=== PATIENT | female | born 1955 | race Caucasian/White ===

== ENCOUNTER 2020-11-27 00:55 | Emergency (ER) | payer OTHER ==
[2020-11-27] MEDS ORDERED: CEPHALEXIN500 MG PO (04:15)
[2020-11-27] MEDS ORDERED: CYCLOBENZAPRINE10 MG PO (04:15)
== END 2020-11-27 04:17 | disposition home or self-care (01) ==
LOC: ER1 00:55
DX: S39.012A Strain of muscle, fascia and tendon of lower back, initial encounter (principal); R82.81 Pyuria; M25.551 Pain in right hip; F17.200 Nicotine dependence, unspecified, uncomplicated; Z86.73 Personal history of transient ischemic attack (TIA), and cerebral infarction without residual deficits; Z88.2 Allergy status to sulfonamides; Z88.8 Allergy status to other drugs, medicaments and biological substances; Z95.5 Presence of coronary angioplasty implant and graft; X58.XXXA Exposure to other specified factors, initial encounter
CPT/HCPCS: 81001; 99283

== ENCOUNTER 2020-12-03 08:30 | Emergency (ER) | payer OTHER ==
[~2020-12-03 08:30] MED LIST: CEPHALEXIN500 MG PO; CYCLOBENZAPRINE10 MG PO
[2020-12-03] MEDS ORDERED: PREDNISONE 50 M50 MG PO (09:54)
[2020-12-03] MEDS ORDERED: CYCLOBENZAPRINE10 MG PO (09:54)
== END 2020-12-03 11:15 | disposition home or self-care (01) ==
LOC: ER1 08:30
DX: M53.3 Sacrococcygeal disorders, not elsewhere classified (principal); M54.5 Low back pain; M25.551 Pain in right hip; I10 Essential (primary) hypertension; F17.200 Nicotine dependence, unspecified, uncomplicated; Z95.1 Presence of aortocoronary bypass graft; Z95.5 Presence of coronary angioplasty implant and graft; Z88.2 Allergy status to sulfonamides; Z88.8 Allergy status to other drugs, medicaments and biological substances
CPT/HCPCS: 96372; 99283; J1100; J1885

== ENCOUNTER 2021-01-31 17:03 | Emergency (ER) | payer OTHER ==
[~2021-01-31 17:03] MED LIST changes: +PREDNISONE 50 M50 MG PO
[2021-02-01] MEDS ORDERED: ASPIRIN EC81 MG PO (13:56)
[2021-02-01] MEDS ORDERED: OMEPRAZOLE20 MG PO (13:57)
[2021-02-01] MEDS ORDERED: COREG 25MG TAB25 MG PO (13:58)
[2021-02-01] MEDS ORDERED: EFFER-K 10 MEQ10 MEQ PO (13:59)
[2021-02-01] MEDS ORDERED: LEVOTHYROXINE25 MC1 PO ×2 (14:00→14:05)
[2021-02-01] MEDS ORDERED: CELEXA40 MG PO (14:00)
[2021-02-01] MEDS ORDERED: LYRICA150 MG PO (14:01)
[2021-02-01] MEDS ORDERED: ESTRACE0.5 MG PO (14:01)
[2021-02-01] MEDS ORDERED: LISINOPRIL20 MG PO (14:04)
[2021-02-01] MEDS ORDERED: QDOLO5 MG/1 ML PO (14:06)
[2021-02-01] MEDS ORDERED: ATORVASTATIN CA80 MG PO (14:06)
== END 2021-01-31 22:55 | disposition left against medical advice (07) ==
LOC: ER1 17:03
DX: M25.551 Pain in right hip (principal); M25.552 Pain in left hip; I25.10 Atherosclerotic heart disease of native coronary artery without angina pectoris; I25.2 Old myocardial infarction; F17.210 Nicotine dependence, cigarettes, uncomplicated; Z90.49 Acquired absence of other specified parts of digestive tract; Z90.89 Acquired absence of other organs; Z88.2 Allergy status to sulfonamides; Z88.8 Allergy status to other drugs, medicaments and biological substances; Z86.73 Personal history of transient ischemic attack (TIA), and cerebral infarction without residual deficits; Z95.1 Presence of aortocoronary bypass graft
CPT/HCPCS: 73522; 81001; 99283

== ENCOUNTER 2021-02-01 10:28 | Inpatient (IN) | payer OTHER ==
[~2021-02-01] VITALS: Ht 162.6 cm; Wt 80.3 kg
[2021-02-01] MEDS ORDERED: ASPIRIN EC81 MG PO (13:56)
[2021-02-01] MEDS ORDERED: OMEPRAZOLE20 MG PO (13:57)
[2021-02-01] MEDS ORDERED: COREG 25MG TAB25 MG PO (13:58)
[2021-02-01] MEDS ORDERED: EFFER-K 10 MEQ10 MEQ PO (13:59)
[2021-02-01] MEDS ORDERED: CELEXA40 MG PO (14:00)
[2021-02-01] MEDS ORDERED: LEVOTHYROXINE25 MC1 PO ×2 (14:00→14:05)
[2021-02-01] MEDS ORDERED: LYRICA150 MG PO (14:01)
[2021-02-01] MEDS ORDERED: ESTRACE0.5 MG PO (14:01)
[2021-02-01] MEDS ORDERED: LISINOPRIL20 MG PO (14:04)
[2021-02-01] MEDS ORDERED: QDOLO5 MG/1 ML PO (14:06)
[2021-02-01] MEDS ORDERED: ATORVASTATIN CA80 MG PO (14:06)
[2021-02-02 05:38] LABS: HEMOGLOBIN 10.5 gm/dl (12.3-15.3); RED BLOOD COUNT 3.95 M/UL (4.00-5.10); WHITE BLOOD COUNT 7.9 K/UL (4.5-11.0)
[2021-02-03 05:30] LABS: HEMOGLOBIN 10.2 gm/dl (12.3-15.3); RED BLOOD COUNT 3.83 M/UL (4.00-5.10); WHITE BLOOD COUNT 6.3 K/UL (4.5-11.0)
[2021-02-04] MEDS ORDERED: HYDRALAZINE HCL25 MG PO (10:38)
[2021-02-04] MEDS ORDERED: CATAPRES 0.1MG0.1 MG PO (10:38)
[2021-02-04] MEDS ORDERED: IPRAT-ALBUT 0.5-3 ML NEB (10:38)
[2021-02-04] MEDS ORDERED: AMLODIPINE BESYL5 MG PO (10:38)
== END 2021-02-04 11:58 | disposition home or self-care (01) | DRG 683 ==
LOC: CCU 13:23
PROVIDERS: Internal Medicine Nephrology; ADMIT Internal Medicine Infectious Disease
DX: N17.9 Acute kidney failure, unspecified (principal); E87.2 Acidosis; M62.82 Rhabdomyolysis; G72.0 Drug-induced myopathy; E87.5 Hyperkalemia; E03.9 Hypothyroidism, unspecified; I73.9 Peripheral vascular disease, unspecified; I10 Essential (primary) hypertension; M54.9 Dorsalgia, unspecified; Z20.822 Contact with and (suspected) exposure to COVID-19; I25.10 Atherosclerotic heart disease of native coronary artery without angina pectoris; K21.9 Gastro-esophageal reflux disease without esophagitis; T50.905A Adverse effect of unspecified drugs, medicaments and biological substances, initial encounter; J45.909 Unspecified asthma, uncomplicated; E16.2 Hypoglycemia, unspecified; M79.606 Pain in leg, unspecified; Z95.828 Presence of other vascular implants and grafts; Z95.1 Presence of aortocoronary bypass graft; Z98.890 Other specified postprocedural states; Z82.49 Family history of ischemic heart disease and other diseases of the circulatory system; Z87.891 Personal history of nicotine dependence; Z90.710 Acquired absence of both cervix and uterus; Z88.2 Allergy status to sulfonamides; Z88.8 Allergy status to other drugs, medicaments and biological substances
CPT/HCPCS: 36415; 71045; 73522; 80048; 80053; 81001; 82550; 82803; 83735; 84443; 85025; 94640; 94664; 94760; J0360; J1644; J7030

== ENCOUNTER 2021-04-09 14:13 | Inpatient (IN) | payer OTHER ==
[~2021-04-09] VITALS: Ht 162.6 cm; Wt 78.9 kg
[~2021-04-09 14:13] MED LIST changes: +AMLODIPINE BESYL5 MG PO; +ASPIRIN EC81 MG PO; +ATORVASTATIN CA80 MG PO; +CATAPRES 0.1MG0.1 MG PO; +CELEXA40 MG PO; +COREG 25MG TAB25 MG PO; +EFFER-K 10 MEQ10 MEQ PO; +ESTRACE0.5 MG PO; +HYDRALAZINE HCL25 MG PO; +IPRAT-ALBUT 0.5-3 ML NEB; +LEVOTHYROXINE25 MC1 PO; +LISINOPRIL20 MG PO; +LYRICA150 MG PO; +OMEPRAZOLE20 MG PO; +QDOLO5 MG/1 ML PO
[2021-04-09 17:13] LABS: HEMOGLOBIN 11.5 gm/dl (12.3-15.3); RED BLOOD COUNT 4.01 M/UL (4.00-5.10); WHITE BLOOD COUNT 7.9 K/UL (4.5-11.0)
[2021-04-10 03:51] LABS: HEMOGLOBIN 10.3 gm/dl (12.3-15.3); WHITE BLOOD COUNT 6.2 K/UL (4.5-11.0)
[2021-04-10 03:52] LABS: RED BLOOD COUNT 3.6 M/UL (4.00-5.10)
[2021-04-10] MEDS ORDERED: PRINIVIL20 MG PO (10:13)
[2021-04-10] MEDS ORDERED: LIPITOR80 MG PO (10:20)
[2021-04-10] MEDS ORDERED: KENALOG 0.5% CR15 GM TOP (10:22)
== END 2021-04-11 12:09 | disposition home or self-care (01) | DRG 683 ==
LOC: ER1 14:13 → OB 20:46 → CDU 20:46 → OB 04-10 12:25
PROVIDERS: Internal Medicine; ADMIT Internal Medicine
DX: N17.9 Acute kidney failure, unspecified (principal); E87.2 Acidosis; N39.0 Urinary tract infection, site not specified; N18.30 Chronic kidney disease, stage 3 unspecified; I12.9 Hypertensive chronic kidney disease with stage 1 through stage 4 chronic kidney disease, or unspecified chronic kidney disease; K21.9 Gastro-esophageal reflux disease without esophagitis; Z20.822 Contact with and (suspected) exposure to COVID-19; K59.09 Other constipation; F17.210 Nicotine dependence, cigarettes, uncomplicated; E03.9 Hypothyroidism, unspecified; K59.00 Constipation, unspecified; I73.9 Peripheral vascular disease, unspecified; G89.29 Other chronic pain; E87.6 Hypokalemia; I25.10 Atherosclerotic heart disease of native coronary artery without angina pectoris; Z95.1 Presence of aortocoronary bypass graft; Z79.82 Long term (current) use of aspirin; Z95.5 Presence of coronary angioplasty implant and graft; Z90.710 Acquired absence of both cervix and uterus; Z90.49 Acquired absence of other specified parts of digestive tract; Z88.6 Allergy status to analgesic agent; Z88.2 Allergy status to sulfonamides; Z88.8 Allergy status to other drugs, medicaments and biological substances; Z82.49 Family history of ischemic heart disease and other diseases of the circulatory system
CPT/HCPCS: 36415; 80048; 80053; 81001; 83690; 83735; 85025; 87086; 96374; 99285; J0696; J7030; U0002

== ENCOUNTER 2021-05-18 15:55 | Emergency (ER) | payer OTHER ==
[~2021-05-18 15:55] MED LIST changes: +KENALOG 0.5% CR15 GM TOP; +LIPITOR80 MG PO; +PRINIVIL20 MG PO
[2021-05-18 17:21] LABS: HEMOGLOBIN 11.8 gm/dl (12.3-15.3); RED BLOOD COUNT 4.1 M/UL (4.00-5.10); WHITE BLOOD COUNT 8.4 K/UL (4.5-11.0)
[2021-05-18] MEDS ORDERED: BENTYL 20MG TAB20 MG PO (21:18)
== END 2021-05-18 21:38 | disposition home or self-care (01) ==
LOC: ER1 15:55
PROVIDERS: Physician Assistant Medical
DX: I12.9 Hypertensive chronic kidney disease with stage 1 through stage 4 chronic kidney disease, or unspecified chronic kidney disease (principal); N18.9 Chronic kidney disease, unspecified; F17.210 Nicotine dependence, cigarettes, uncomplicated; Z88.8 Allergy status to other drugs, medicaments and biological substances; Z95.1 Presence of aortocoronary bypass graft; Z90.710 Acquired absence of both cervix and uterus; Z90.49 Acquired absence of other specified parts of digestive tract; Z79.82 Long term (current) use of aspirin
CPT/HCPCS: 71045; 80053; 81001; 84484; 85025; 99284

== ENCOUNTER 2021-08-25 01:35 | Inpatient (IN) | payer OTHER ==
[~2021-08-25] VITALS: Ht 162.6 cm; Wt 92.1 kg
[~2021-08-25 01:35] MED LIST changes: +BENTYL 20MG TAB20 MG PO
[2021-08-25 02:33] LABS: HEMOGLOBIN 9.5 gm/dl (12.3-15.3); RED BLOOD COUNT 3.26 M/UL (4.00-5.10); WHITE BLOOD COUNT 9.6 K/UL (4.5-11.0)
[2021-08-25 03:33] LABS: BUN/CREATININE RATIO 14 (0-10)
[2021-08-25] MEDS ORDERED: BENTYL 20MG TAB20 MG PO (09:19)
[2021-08-26 02:38] LABS: RED BLOOD COUNT 3.41 M/UL (4.00-5.10); WHITE BLOOD COUNT 10.7 K/UL (4.5-11.0)
[2021-08-27 02:53] LABS: HEMOGLOBIN 9.6 gm/dl (12.3-15.3); RED BLOOD COUNT 3.26 M/UL (4.00-5.10)
[2021-08-28 03:20] LABS: HEMOGLOBIN 8.4 gm/dl (12.3-15.3); WHITE BLOOD COUNT 7.5 K/UL (4.5-11.0)
[2021-08-28 03:24] LABS: RED BLOOD COUNT 2.84 M/UL (4.00-5.10)
[2021-08-29 04:00] LABS: HEMOGLOBIN 8.4 gm/dl (12.3-15.3); RED BLOOD COUNT 2.88 M/UL (4.00-5.10); WHITE BLOOD COUNT 6.6 K/UL (4.5-11.0)
[2021-08-29] MEDS ORDERED: HYDRALAZINE HCL50 MG PO (09:56)
[2021-08-29] MEDS ORDERED: AMLODIPINE BESYL5 MG PO (09:56)
[2021-08-29] MEDS ORDERED: ATORVASTATIN CA20 MG PO (09:56)
[2021-08-29 11:13] LABS: ANTISTREPTOLYSIN O AB 250.1 IU/mL (0.0-200.0); COMPLEMENT C3, SERUM 130 mg/dL (82-167); COMPLEMENT C4, SERUM 27 mg/dL (12-38)
[2021-08-29 12:13] LABS: HBSAG SCREEN Negative (Negative); HEP B CORE AB, TOT Negative (Negative); HEP C VIRUS AB <0.1 (0.0-0.9)
--- NOTE | 2021-08-29 13:50 | NUR ---
PATIENT'S OXYGEN SATURATION NOTED TO HAVE DROPPED TO 84% ON ROOM AIR. TELEMETRY NOTIFIED RN PATIENT IS ON CONTINUOUS TELEMETRY AND PULSE OX. PATIENT STATED SHE WAS FEELING SHORT OF BREATH BUT DENIED CHEST PAIN. RN PLACED PATIENT ON 3 LITERS OXYGEN VIA NASAL CANNULA. MD ORDERED HOME OXYGEN AT 3 LITERS AND TO CONTINUE WITH DISCHARGE.
[2021-08-29 15:14] LABS: A/G RATIO 1.2 (0.7-1.7); ALBUMIN 3.4 g/dL (2.9-4.4); ALPHA-1-GLOBULIN 0.2 g/dL (0.0-0.4); ALPHA-2-GLOBULIN 0.7 g/dL (0.4-1.0); ANTI-DSDNA ANTIBODIES <1 IU/mL (0-9); GLOBULIN, TOTAL 2.9 g/dL (2.2-3.9); IMMUNOGLOBULIN A, QN, SERUM 310 mg/dL (87-352); IMMUNOGLOBULIN G, QN, SERUM 1007 mg/dL (586-1602); IMMUNOGLOBULIN M, QN, SERUM 41 mg/dL (26-217); M-SPIKE Not Observed g/dL (Not Observed); PROTEIN, TOTAL, SERUM 6.3 g/dL (6.0-8.5)
[2021-08-29 17:14] LABS: ATYPICAL PANCA <1:20 titer (Neg:<1:20); CYTOPLASMIC (C-ANCA) <1:20 titer (Neg:<1:20); PERINUCLEAR (P-ANCA) <1:20 titer (Neg:<1:20)
== END 2021-08-29 15:20 | disposition home or self-care (01) | DRG 291 ==
LOC: ER1 01:35 → CDU 04:26 → PROG CARE 04:26 → MED SURG 4 08-28 10:13
PROVIDERS: Family Medicine; Internal Medicine; Internal Medicine Nephrology; ADMIT Internal Medicine
PROC: B24BZZ4 Ultrasonography of Heart with Aorta, Transesophageal (ICD-10-PCS; principal; 2021-08-25)
DX: I13.0 Hypertensive heart and chronic kidney disease with heart failure and stage 1 through stage 4 chronic kidney disease, or unspecified chronic kidney disease (principal); J96.01 Acute respiratory failure with hypoxia; Z20.822 Contact with and (suspected) exposure to COVID-19; I50.31 Acute diastolic (congestive) heart failure; N17.9 Acute kidney failure, unspecified; I16.0 Hypertensive urgency; K21.9 Gastro-esophageal reflux disease without esophagitis; E11.22 Type 2 diabetes mellitus with diabetic chronic kidney disease; E66.9 Obesity, unspecified; I73.9 Peripheral vascular disease, unspecified; E03.9 Hypothyroidism, unspecified; I08.3 Combined rheumatic disorders of mitral, aortic and tricuspid valves; N18.30 Chronic kidney disease, stage 3 unspecified; J44.9 Chronic obstructive pulmonary disease, unspecified; F17.210 Nicotine dependence, cigarettes, uncomplicated; I25.10 Atherosclerotic heart disease of native coronary artery without angina pectoris; Z95.1 Presence of aortocoronary bypass graft; Z90.49 Acquired absence of other specified parts of digestive tract; Z82.49 Family history of ischemic heart disease and other diseases of the circulatory system; Z88.1 Allergy status to other antibiotic agents; Z88.2 Allergy status to sulfonamides; Z88.8 Allergy status to other drugs, medicaments and biological substances; Z79.82 Long term (current) use of aspirin; Z68.30 Body mass index [BMI] 30.0-30.9, adult; Z79.4 Long term (current) use of insulin; Z95.5 Presence of coronary angioplasty implant and graft
CPT/HCPCS: ECHO; 36415; 36600; 71045; 80048; 80053; 82550; 82553; 82570; 82784; 82803; 83520; 83735; 83874; 83880; 83883; 84100; 84155; 84156; 84165; 84484; 85025; 85027; 86038; 86060; 86160; 86162; 86225; 86256; 86334; 86704; 86706; 86708; 86803; 87340; 93005; 93306; 94640; 94664; 94760; 96374; 96375; 99285; J0360; J1650; J1940; J2930; J7030; P9047; U0002

== ENCOUNTER 2021-09-12 15:24 | Observation (INO) | payer OTHER ==
[~2021-09-12] VITALS: Ht 162.6 cm; Wt 80.5 kg
[~2021-09-12 15:24] MED LIST changes: +ATORVASTATIN CA20 MG PO; +HYDRALAZINE HCL50 MG PO
[2021-09-12 17:02] LABS: RED BLOOD COUNT 3.04 M/UL (4.00-5.10); WHITE BLOOD COUNT 11.2 K/UL (4.5-11.0)
[2021-09-13] MEDS ORDERED: CETIRIZINE HCL10 MG PO (02:03)
[2021-09-13] MEDS ORDERED: CLARITIN 10MG T10 MG PO (02:04)
[2021-09-13] MEDS ORDERED: DICYCLOMINE HCL20 MG PO (02:04)
[2021-09-13] MEDS ORDERED: ESTRACE 1 MG TAB1 MG PO (02:05)
[2021-09-13] MEDS ORDERED: FAMOTIDINE40 MG PO (02:05)
[2021-09-13] MEDS ORDERED: HYDROCODON-ACE1 EAC2 PO (02:08)
[2021-09-15] MEDS ORDERED: HYDRALAZINE HCL50 MG PO (09:48)
[2021-09-15] MEDS ORDERED: ALDACTONE 25MG25 MG PO (09:48)
[2021-09-15] MEDS ORDERED: LASIX20 MG PO (09:48)
== END 2021-09-15 13:00 | disposition home health service (06) ==
LOC: ER1 15:24 → CDU 20:03 → PROG CARE 20:03
PROVIDERS: Physician Assistant; ADMIT Internal Medicine
DX: I13.0 Hypertensive heart and chronic kidney disease with heart failure and stage 1 through stage 4 chronic kidney disease, or unspecified chronic kidney disease (principal); I50.33 Acute on chronic diastolic (congestive) heart failure; N18.30 Chronic kidney disease, stage 3 unspecified; I16.0 Hypertensive urgency; I35.2 Nonrheumatic aortic (valve) stenosis with insufficiency; J44.9 Chronic obstructive pulmonary disease, unspecified; J96.21 Acute and chronic respiratory failure with hypoxia; I25.10 Atherosclerotic heart disease of native coronary artery without angina pectoris; E78.5 Hyperlipidemia, unspecified; I73.9 Peripheral vascular disease, unspecified; E03.9 Hypothyroidism, unspecified; K21.9 Gastro-esophageal reflux disease without esophagitis; D63.1 Anemia in chronic kidney disease; E66.9 Obesity, unspecified; Z99.81 Dependence on supplemental oxygen; Z68.31 Body mass index [BMI] 31.0-31.9, adult; Z79.82 Long term (current) use of aspirin; Z79.899 Other long term (current) drug therapy; Z88.2 Allergy status to sulfonamides; Z88.8 Allergy status to other drugs, medicaments and biological substances; Z95.1 Presence of aortocoronary bypass graft; Z90.49 Acquired absence of other specified parts of digestive tract; Z87.891 Personal history of nicotine dependence; Z20.822 Contact with and (suspected) exposure to COVID-19
CPT/HCPCS: 36415; 36600; 71045; 80048; 80053; 82550; 82553; 82803; 83735; 83874; 83880; 84100; 84132; 84439; 84443; 84484; 84550; 85025; 93005; 94640; 94664; 94760; 96372; 96374; 96375; 96376; 99285; G0378; J0360; J1650; J1940; U0002

== ENCOUNTER 2021-09-19 21:49 | Emergency (ER) | payer OTHER ==
[~2021-09-19 21:49] MED LIST changes: +ALDACTONE 25MG25 MG PO; +CETIRIZINE HCL10 MG PO; +CLARITIN 10MG T10 MG PO; +DICYCLOMINE HCL20 MG PO; +ESTRACE 1 MG TAB1 MG PO; +FAMOTIDINE40 MG PO; +HYDROCODON-ACE1 EAC2 PO; +LASIX20 MG PO
[2021-09-19 22:23] LABS: HEMOGLOBIN 9.1 gm/dl (12.3-15.3); RED BLOOD COUNT 3.1 M/UL (4.00-5.10); WHITE BLOOD COUNT 11.1 K/UL (4.5-11.0)
== END 2021-09-20 00:30 | disposition home or self-care (01) ==
LOC: ER1 21:49
PROVIDERS: Preventive Medicine Occupational Medicine
DX: I11.0 Hypertensive heart disease with heart failure (principal); I50.9 Heart failure, unspecified; Z20.822 Contact with and (suspected) exposure to COVID-19
CPT/HCPCS: 71045; 80053; 81001; 82550; 82553; 83874; 83880; 84484; 85025; 85652; 86140; 87077; 87086; 87186; 93005; 96374; 99285; U0002

== ENCOUNTER 2021-10-02 14:13 | Inpatient (IN) | payer OTHER ==
[~2021-10-02] VITALS: Ht 162.6 cm; Wt 81.8 kg
[~2021-10-02 14:13] MED LIST changes: +LEVOTHYROXINE25 MCG PO
[2021-10-02 15:28] LABS: RED BLOOD COUNT 3.09 M/UL (4.00-5.10)
[2021-10-03 10:50] LABS: HEMOGLOBIN 7.6 gm/dl (12.3-15.3)
[2021-10-03 10:53] LABS: RED BLOOD COUNT 2.6 M/UL (4.00-5.10); WHITE BLOOD COUNT 7.4 K/UL (4.5-11.0)
[2021-10-04 07:17] LABS: HEMOGLOBIN 8.2 gm/dl (12.3-15.3); RED BLOOD COUNT 2.78 M/UL (4.00-5.10); WHITE BLOOD COUNT 7.3 K/UL (4.5-11.0)
[2021-10-05 07:37] LABS: HEMOGLOBIN 7.9 gm/dl (12.3-15.3); RED BLOOD COUNT 2.77 M/UL (4.00-5.10); WHITE BLOOD COUNT 6.6 K/UL (4.5-11.0)
[2021-10-06 08:16] LABS: HEMOGLOBIN 8.8 gm/dl (12.3-15.3); RED BLOOD COUNT 3.01 M/UL (4.00-5.10); WHITE BLOOD COUNT 6.2 K/UL (4.5-11.0)
[2021-10-07 07:12] LABS: COMPLEMENT C3, SERUM 149 mg/dL (82-167); COMPLEMENT C4, SERUM 34 mg/dL (12-38); HBSAG SCREEN Negative (Negative); HEP A AB, IGM Negative (Negative); HEP B CORE AB, IGM Negative (Negative); HEP C VIRUS AB <0.1 (0.0-0.9)
[2021-10-07 07:43] LABS: HEMOGLOBIN 8.1 gm/dl (12.3-15.3); RED BLOOD COUNT 2.85 M/UL (4.00-5.10); WHITE BLOOD COUNT 4.7 K/UL (4.5-11.0)
[2021-10-07 12:14] LABS: CREATININE, URINE 37.9 mg/dL (Not Estab.)
[2021-10-07 15:14] LABS: ANTI-DSDNA ANTIBODIES <1 IU/mL (0-9)
[2021-10-07 16:14] LABS: A/G RATIO 0.9 (0.7-1.7); ALBUMIN 3.1 g/dL (2.9-4.4); ALPHA-1-GLOBULIN 0.3 g/dL (0.0-0.4); ALPHA-2-GLOBULIN 0.8 g/dL (0.4-1.0); BETA GLOBULIN 1.2 g/dL (0.7-1.3); GAMMA GLOBULIN 1.3 g/dL (0.4-1.8); GLOBULIN, TOTAL 3.6 g/dL (2.2-3.9); IMMUNOGLOBULIN A, QN, SERUM 368 mg/dL (87-352); IMMUNOGLOBULIN G, QN, SERUM 1272 mg/dL (586-1602); IMMUNOGLOBULIN M, QN, SERUM 43 mg/dL (26-217); M-SPIKE Not Observed g/dL (Not Observed); PROTEIN, TOTAL, SERUM 6.7 g/dL (6.0-8.5)
[2021-10-08 06:36] LABS: HEMOGLOBIN 8.5 gm/dl (12.3-15.3); RED BLOOD COUNT 2.94 M/UL (4.00-5.10); WHITE BLOOD COUNT 5.5 K/UL (4.5-11.0)
[2021-10-08 14:14] LABS: ANTIMYELOPEROXIDASE (MPO) ABS <9.0 U/mL (0.0-9.0); ANTIPROTEINASE 3 (PR-3) ABS <3.5 U/mL (0.0-3.5); ATYPICAL PANCA <1:20 titer (Neg:<1:20); CYTOPLASMIC (C-ANCA) <1:20 titer (Neg:<1:20); PERINUCLEAR (P-ANCA) <1:20 titer (Neg:<1:20)
[2021-10-09] MEDS ORDERED: SODIUM BICARBO650 M1 PO (11:31)
[2021-10-09] MEDS ORDERED: FERROUS SULFAT325 M2 PO (11:31)
== END 2021-10-09 12:57 | disposition home or self-care (01) | DRG 683 ==
LOC: ER1 14:13 → MED SURG 4 16:49 → CDU 16:49 → MED SURG 4 23:14
PROVIDERS: Internal Medicine; Internal Medicine Nephrology; Physician Assistant; Preventive Medicine Occupational Medicine; ADMIT Internal Medicine
PROC: 30233N1 Transfusion of Nonautologous Red Blood Cells into Peripheral Vein, Percutaneous Approach (ICD-10-PCS; principal; 2021-10-03)
PROC: B24BZZZ Ultrasonography of Heart with Aorta (ICD-10-PCS; 2021-10-03)
DX: N17.0 Acute kidney failure with tubular necrosis (principal); J96.11 Chronic respiratory failure with hypoxia; Z20.822 Contact with and (suspected) exposure to COVID-19; E87.2 Acidosis; I50.32 Chronic diastolic (congestive) heart failure; I13.0 Hypertensive heart and chronic kidney disease with heart failure and stage 1 through stage 4 chronic kidney disease, or unspecified chronic kidney disease; N39.0 Urinary tract infection, site not specified; G89.29 Other chronic pain; F17.210 Nicotine dependence, cigarettes, uncomplicated; I73.9 Peripheral vascular disease, unspecified; E78.5 Hyperlipidemia, unspecified; K21.9 Gastro-esophageal reflux disease without esophagitis; I25.10 Atherosclerotic heart disease of native coronary artery without angina pectoris; E86.0 Dehydration; N18.30 Chronic kidney disease, stage 3 unspecified; I27.20 Pulmonary hypertension, unspecified; I08.0 Rheumatic disorders of both mitral and aortic valves; D63.1 Anemia in chronic kidney disease; D50.9 Iron deficiency anemia, unspecified; Z95.5 Presence of coronary angioplasty implant and graft; Z86.73 Personal history of transient ischemic attack (TIA), and cerebral infarction without residual deficits; Z79.01 Long term (current) use of anticoagulants; Z79.82 Long term (current) use of aspirin; Z98.1 Arthrodesis status; Z90.710 Acquired absence of both cervix and uterus; Z88.6 Allergy status to analgesic agent; Z88.2 Allergy status to sulfonamides; Z88.8 Allergy status to other drugs, medicaments and biological substances; Z80.0 Family history of malignant neoplasm of digestive organs; Z95.1 Presence of aortocoronary bypass graft; Z90.49 Acquired absence of other specified parts of digestive tract
CPT/HCPCS: ECHO; 36415; 36430; 71045; 80048; 80053; 80074; 80307; 81001; 82043; 82140; 82550; 82553; 82570; 82728; 82784; 82803; 83520; 83540; 83550; 83605; 83690; 83735; 83874; 83880; 84100; 84155; 84156; 84165; 84484; 85025; 85652; 86038; 86140; 86160; 86225; 86256; 86334; 86850; 86900; 86901; 86920; 87040; 87086; 89050; 93306; 94640; 94664; 94760; 96374; 99284; J0696; J1650; J1756; J3360; J7030; P9016; P9047; U0002

== ENCOUNTER 2021-10-13 00:26 | Observation (INO) | payer OTHER ==
[~2021-10-13] VITALS: Ht 162.6 cm; Wt 81.6 kg
[~2021-10-13 00:26] MED LIST changes: +FERROUS SULFAT325 M2 PO; +SODIUM BICARBO650 M1 PO
[2021-10-13 03:12] LABS: HEMOGLOBIN 8.7 gm/dl (12.3-15.3); RED BLOOD COUNT 2.96 M/UL (4.00-5.10)
[2021-10-13 03:39] LABS: BUN/CREATININE RATIO 17 (0-10)
[2021-10-13] MEDS ORDERED: ATORVASTATIN CA20 MG PO (11:29)
[2021-10-14 06:50] LABS: HEMOGLOBIN 8.8 gm/dl (12.3-15.3)
[2021-10-14 06:55] LABS: WHITE BLOOD COUNT 4.9 K/UL (4.5-11.0)
[2021-10-14] MEDS ORDERED: LASIX TAB 20 MG20 MG GT (11:33)
[2021-10-14] MEDS ORDERED: IPRAT-ALBUT 0.5-3 ML NEB (11:33)
== END 2021-10-14 14:51 | disposition home or self-care (01) ==
LOC: ER1 00:26 → MED SURG 4 06:08 → CDU 06:08 → MED SURG 4 12:58
PROVIDERS: Emergency Medicine; ADMIT Internal Medicine
DX: I13.0 Hypertensive heart and chronic kidney disease with heart failure and stage 1 through stage 4 chronic kidney disease, or unspecified chronic kidney disease (principal); N18.4 Chronic kidney disease, stage 4 (severe); I50.33 Acute on chronic diastolic (congestive) heart failure; N17.9 Acute kidney failure, unspecified; I25.10 Atherosclerotic heart disease of native coronary artery without angina pectoris; J96.11 Chronic respiratory failure with hypoxia; J44.9 Chronic obstructive pulmonary disease, unspecified; E78.5 Hyperlipidemia, unspecified; I27.20 Pulmonary hypertension, unspecified; G89.29 Other chronic pain; M54.9 Dorsalgia, unspecified; I73.9 Peripheral vascular disease, unspecified; I35.0 Nonrheumatic aortic (valve) stenosis; Z95.1 Presence of aortocoronary bypass graft; Z99.81 Dependence on supplemental oxygen; Z79.82 Long term (current) use of aspirin; Z86.73 Personal history of transient ischemic attack (TIA), and cerebral infarction without residual deficits; Z72.0 Tobacco use; Z95.828 Presence of other vascular implants and grafts; Z90.710 Acquired absence of both cervix and uterus; Z88.2 Allergy status to sulfonamides; Z88.8 Allergy status to other drugs, medicaments and biological substances; Z20.822 Contact with and (suspected) exposure to COVID-19
CPT/HCPCS: 36415; 71045; 80048; 80053; 82550; 82553; 83874; 83880; 84484; 85025; 93005; 94640; 94664; 94760; 96372; 96374; 99285; G0378; J1644; J2920; U0002

== ENCOUNTER 2021-11-28 16:53 | Emergency (ER) | payer OTHER ==
[~2021-11-28 16:53] MED LIST changes: +LASIX TAB 20 MG20 MG GT
== END 2021-11-28 17:25 | disposition left against medical advice (07) ==
LOC: ER1 16:53
DX: Z53.21 Procedure and treatment not carried out due to patient leaving prior to being seen by health care provider (principal)

== ENCOUNTER 2022-01-03 14:57 | Inpatient (IN) | payer OTHER ==
[~2022-01-03] VITALS: Ht 162.6 cm; Wt 74.4 kg
[~2022-01-03 14:57] MED LIST changes: -CLARITIN 10MG T10 MG PO; -FAMOTIDINE40 MG PO
[2022-01-03 16:10] LABS: HEMOGLOBIN 10.9 gm/dl (12.3-15.3); RED BLOOD COUNT 3.82 M/UL (4.00-5.10); WHITE BLOOD COUNT 6.6 K/UL (4.5-11.0)
[2022-01-03 16:43] LABS: BUN/CREATININE RATIO 11 (0-10)
[2022-01-04] MEDS ORDERED: CLARITIN10 MG PO (02:04)
[2022-01-04] MEDS ORDERED: FAMOTIDINE40 MG PO (02:05)
[2022-01-04 03:25] LABS: HEMOGLOBIN 10.3 gm/dl (12.3-15.3); RED BLOOD COUNT 3.66 M/UL (4.00-5.10)
[2022-01-04] MEDS ORDERED: HYDRALAZINE HCL50 MG PO (11:44)
[2022-01-04] MEDS ORDERED: NORVASC5 MG PO (11:44)
[2022-01-04] MEDS ORDERED: LASIX20 MG PO (11:45)
[2022-01-04] MEDS ORDERED: PROAIR HFA8.5 GM INH (11:51)
[2022-01-04] MEDS ORDERED: ZYRTEC10 MG PO (11:51)
[2022-01-05 03:02] LABS: HEMOGLOBIN 8.3 gm/dl (12.3-15.3); RED BLOOD COUNT 2.95 M/UL (4.00-5.10); WHITE BLOOD COUNT 6.5 K/UL (4.5-11.0)
--- NOTE | 2022-01-05 22:05 | NUR ---
SPOKE WITH PTS DAUGHTER CHEO AND UPDATED HER ON PTS LABS AND POC. PT ALERT AND ORIENTED IN NAD.
--- NOTE | 2022-01-05 22:06 | NUR ---
CALLED DR TONY TO CLARIFY FLUIDS WITH ELEVATED BNP. ORDERS TO CONTINUE FLUIDS AT THIS TIME, NEPHROLOGY AWARE AND WILL FOLLOW PT.
--- NOTE | 2022-01-05 23:37 | NUR ---
DR GOMEZ HERE TO SEE PT. HE IS REVIEWING LABS AND FLUIDS.
[2022-01-06 00:56] LABS: HEMOGLOBIN 7.8 gm/dl (12.3-15.3); RED BLOOD COUNT 2.85 M/UL (4.00-5.10); WHITE BLOOD COUNT 9.4 K/UL (4.5-11.0)
[2022-01-06 06:45] LABS: HEMOGLOBIN 7.7 gm/dl (12.3-15.3); RED BLOOD COUNT 2.77 M/UL (4.00-5.10); WHITE BLOOD COUNT 8.6 K/UL (4.5-11.0)
[2022-01-07 03:01] LABS: HEMOGLOBIN 7.3 gm/dl (12.3-15.3); RED BLOOD COUNT 2.65 M/UL (4.00-5.10); WHITE BLOOD COUNT 7.2 K/UL (4.5-11.0)
--- NOTE | 2022-01-07 13:05 | NUR ---
PT REC'D A TEMPORARY DIALYSIS CATHETER, TIME OUT DONE AT 12:20, PROCEDURE START TIME WAS 12:35, END TIME WAS 12:54, X-RAY DONE, PT ALERT, VSS, WILL CONTINUE TO MONITOR
[2022-01-08 03:14] LABS: WHITE BLOOD COUNT 8.3 K/UL (4.5-11.0)
[2022-01-08 03:20] LABS: RED BLOOD COUNT 2.92 M/UL (4.00-5.10)
[2022-01-09 02:07] LABS: HEMOGLOBIN 9.2 gm/dl (12.3-15.3)
[2022-01-09 02:08] LABS: RED BLOOD COUNT 3.28 M/UL (4.00-5.10); WHITE BLOOD COUNT 10.5 K/UL (4.5-11.0)
[2022-01-09 13:15] LABS: HBSAG SCREEN Negative (Negative); HEP A AB, IGM Negative (Negative); HEP B CORE AB, IGM Negative (Negative); HEP C VIRUS AB <0.1 (0.0-0.9)
--- NOTE | 2022-01-09 13:43 | NUR ---
PATIENT CAME BACK FROM DIALYSIS AND TECH ASKED PATIENT AND DAUGHTER AT BEDSIDE IF A BEDBATH WOULD BE OKAY TO GIVE AT THIS TIME. DAUGHTER REFUSED THE BED BATH BUT ASKED HER TO BE PULLED UP. PATIENT PULLED UP IN THE BED AND RESTING.
[2022-01-10 02:54] LABS: HEMOGLOBIN 10.6 gm/dl (12.3-15.3); WHITE BLOOD COUNT 11.4 K/UL (4.5-11.0)
[2022-01-10 02:55] LABS: RED BLOOD COUNT 3.74 M/UL (4.00-5.10)
[2022-01-11 02:17] LABS: HEMOGLOBIN 12.1 gm/dl (12.3-15.3)
[2022-01-11 02:20] LABS: RED BLOOD COUNT 4.35 M/UL (4.00-5.10); WHITE BLOOD COUNT 14.3 K/UL (4.5-11.0)
[2022-01-12 02:26] LABS: HEMOGLOBIN 11.8 gm/dl (12.3-15.3); RED BLOOD COUNT 4.18 M/UL (4.00-5.10)
[2022-01-12 02:29] LABS: WHITE BLOOD COUNT 10.7 K/UL (4.5-11.0)
[2022-01-13 04:32] LABS: HEMOGLOBIN 10.4 gm/dl (12.3-15.3)
[2022-01-13 04:58] LABS: RED BLOOD COUNT 3.72 M/UL (4.00-5.10); WHITE BLOOD COUNT 7.3 K/UL (4.5-11.0)
[2022-01-14 02:34] LABS: HEMOGLOBIN 11.2 gm/dl (12.3-15.3); RED BLOOD COUNT 3.82 M/UL (4.00-5.10)
[2022-01-15 14:40] LABS: HEMOGLOBIN 10.3 gm/dl (12.3-15.3); RED BLOOD COUNT 3.63 M/UL (4.00-5.10); WHITE BLOOD COUNT 13.1 K/UL (4.5-11.0)
[2022-01-16 02:58] LABS: HEMOGLOBIN 10.7 gm/dl (12.3-15.3); RED BLOOD COUNT 3.76 M/UL (4.00-5.10); WHITE BLOOD COUNT 12.9 K/UL (4.5-11.0)
[2022-01-16 12:15] LABS: HBSAG SCREEN Negative (Negative); HEP B CORE AB, TOT Negative (Negative); HEP C VIRUS AB <0.1 (0.0-0.9)
[2022-01-17 03:46] LABS: HEMOGLOBIN 10.3 gm/dl (12.3-15.3); RED BLOOD COUNT 3.61 M/UL (4.00-5.10); WHITE BLOOD COUNT 10.1 K/UL (4.5-11.0)
--- NOTE | 2022-01-17 16:24 | NUR ---
REPORT CALLED TO RYAN OTOOLE
[2022-01-18 03:05] LABS: HEMOGLOBIN 10.4 gm/dl (12.3-15.3); RED BLOOD COUNT 3.67 M/UL (4.00-5.10); WHITE BLOOD COUNT 15.9 K/UL (4.5-11.0)
[2022-01-19 10:12] LABS: HEMOGLOBIN 10.6 gm/dl (12.3-15.3); RED BLOOD COUNT 3.71 M/UL (4.00-5.10)
[2022-01-19 10:13] LABS: WHITE BLOOD COUNT 10.6 K/UL (4.5-11.0)
[2022-01-20 05:03] LABS: HEMOGLOBIN 10.6 gm/dl (12.3-15.3); RED BLOOD COUNT 3.64 M/UL (4.00-5.10); WHITE BLOOD COUNT 9.6 K/UL (4.5-11.0)
[2022-01-21 04:39] LABS: HEMOGLOBIN 10.2 gm/dl (12.3-15.3); RED BLOOD COUNT 3.57 M/UL (4.00-5.10); WHITE BLOOD COUNT 8.4 K/UL (4.5-11.0)
[2022-01-22 04:01] LABS: HEMOGLOBIN 10.4 gm/dl (12.3-15.3); RED BLOOD COUNT 3.61 M/UL (4.00-5.10); WHITE BLOOD COUNT 10.4 K/UL (4.5-11.0)
[2022-01-23 03:54] LABS: HEMOGLOBIN 9.8 gm/dl (12.3-15.3); RED BLOOD COUNT 3.35 M/UL (4.00-5.10)
[2022-01-23 04:02] LABS: WHITE BLOOD COUNT 5.7 K/UL (4.5-11.0)
[2022-01-23] MEDS ORDERED: OMNICEF 300 MG300 MG PO (16:40)
== END 2022-01-23 18:36 | disposition home or self-care (01) | DRG 177 ==
LOC: ER1 14:57 → CDU 22:02 → PROG CARE 22:02 → MED SURG 4 22:02 → PROG CARE 01-04 02:03 → MED SURG 4 01-17 16:53
PROVIDERS: Internal Medicine; Internal Medicine Nephrology; Physician Assistant Medical; ADMIT Internal Medicine
PROC: 2W3AX1Z Immobilization of Right Upper Arm using Splint (ICD-10-PCS; principal; 2022-01-03)
PROC: 8E0ZXY6 Isolation (ICD-10-PCS; 2022-01-04)
PROC: 5A0945A Assistance with Respiratory Ventilation, 24-96 Consecutive Hours, High Flow/Velocity Cannula (ICD-10-PCS; 2022-01-04)
PROC: 3E0333Z Introduction of Anti-inflammatory into Peripheral Vein, Percutaneous Approach (ICD-10-PCS; 2022-01-06)
PROC: B24BZZZ Ultrasonography of Heart with Aorta (ICD-10-PCS; 2022-01-06)
PROC: 5A09457 Assistance with Respiratory Ventilation, 24-96 Consecutive Hours, Continuous Positive Airway Pressure (ICD-10-PCS; 2022-01-06)
PROC: 5A1D70Z Performance of Urinary Filtration, Intermittent, Less than 6 Hours Per Day (ICD-10-PCS; 2022-01-07)
PROC: 05HM33Z Insertion of Infusion Device into Right Internal Jugular Vein, Percutaneous Approach (ICD-10-PCS; 2022-01-07)
PROC: B543ZZA Ultrasonography of Right Jugular Veins, Guidance (ICD-10-PCS; 2022-01-07)
PROC: 5A1D70Z Performance of Urinary Filtration, Intermittent, Less than 6 Hours Per Day (ICD-10-PCS; 2022-01-08)
PROC: 5A0935A Assistance with Respiratory Ventilation, Less than 24 Consecutive Hours, High Flow/Velocity Cannula (ICD-10-PCS; 2022-01-08)
PROC: 5A1D70Z Performance of Urinary Filtration, Intermittent, Less than 6 Hours Per Day (ICD-10-PCS; 2022-01-09)
PROC: 0DH67UZ Insertion of Feeding Device into Stomach, Via Natural or Artificial Opening (ICD-10-PCS; 2022-01-09)
PROC: 3E0G76Z Introduction of Nutritional Substance into Upper GI, Via Natural or Artificial Opening (ICD-10-PCS; 2022-01-09)
PROC: 5A09357 Assistance with Respiratory Ventilation, Less than 24 Consecutive Hours, Continuous Positive Airway Pressure (ICD-10-PCS; 2022-01-09)
PROC: 5A0945A Assistance with Respiratory Ventilation, 24-96 Consecutive Hours, High Flow/Velocity Cannula (ICD-10-PCS; 2022-01-09)
PROC: 5A1D70Z Performance of Urinary Filtration, Intermittent, Less than 6 Hours Per Day (ICD-10-PCS; 2022-01-10)
PROC: 5A0935A Assistance with Respiratory Ventilation, Less than 24 Consecutive Hours, High Flow/Velocity Cannula (ICD-10-PCS; 2022-01-13)
PROC: 5A09357 Assistance with Respiratory Ventilation, Less than 24 Consecutive Hours, Continuous Positive Airway Pressure (ICD-10-PCS; 2022-01-16)
PROC: 5A1D70Z Performance of Urinary Filtration, Intermittent, Less than 6 Hours Per Day (ICD-10-PCS; 2022-01-17)
PROC: 0JH63XZ Insertion of Tunneled Vascular Access Device into Chest Subcutaneous Tissue and Fascia, Percutaneous Approach (ICD-10-PCS; 2022-01-19)
PROC: 02HV33Z Insertion of Infusion Device into Superior Vena Cava, Percutaneous Approach (ICD-10-PCS; 2022-01-19)
PROC: B548ZZA Ultrasonography of Superior Vena Cava, Guidance (ICD-10-PCS; 2022-01-19)
PROC: 5A1D70Z Performance of Urinary Filtration, Intermittent, Less than 6 Hours Per Day (ICD-10-PCS; 2022-01-20)
PROC: 5A1D70Z Performance of Urinary Filtration, Intermittent, Less than 6 Hours Per Day (ICD-10-PCS; 2022-01-23)
DX: U07.1 COVID-19 (principal); J96.21 Acute and chronic respiratory failure with hypoxia; J12.82 Pneumonia due to coronavirus disease 2019; J15.9 Unspecified bacterial pneumonia; N17.0 Acute kidney failure with tubular necrosis; G93.41 Metabolic encephalopathy; S42.301A Unspecified fracture of shaft of humerus, right arm, initial encounter for closed fracture; J44.0 Chronic obstructive pulmonary disease with (acute) lower respiratory infection; J44.1 Chronic obstructive pulmonary disease with (acute) exacerbation; I13.0 Hypertensive heart and chronic kidney disease with heart failure and stage 1 through stage 4 chronic kidney disease, or unspecified chronic kidney disease; E87.1 Hypo-osmolality and hyponatremia; E87.2 Acidosis; N18.4 Chronic kidney disease, stage 4 (severe); H70.892 Other mastoiditis and related conditions, left ear; J01.30 Acute sphenoidal sinusitis, unspecified; I25.10 Atherosclerotic heart disease of native coronary artery without angina pectoris; D63.1 Anemia in chronic kidney disease; R19.7 Diarrhea, unspecified; E78.5 Hyperlipidemia, unspecified; F17.210 Nicotine dependence, cigarettes, uncomplicated; I08.3 Combined rheumatic disorders of mitral, aortic and tricuspid valves; K59.00 Constipation, unspecified; E87.6 Hypokalemia; W18.30XA Fall on same level, unspecified, initial encounter; E86.0 Dehydration; I27.20 Pulmonary hypertension, unspecified; Z99.81 Dependence on supplemental oxygen; Z99.2 Dependence on renal dialysis; Z95.1 Presence of aortocoronary bypass graft; Y92.091 Bathroom in other non-institutional residence as the place of occurrence of the external cause; Z86.73 Personal history of transient ischemic attack (TIA), and cerebral infarction without residual deficits; Z90.49 Acquired absence of other specified parts of digestive tract; Z90.710 Acquired absence of both cervix and uterus; Z95.820 Peripheral vascular angioplasty status with implants and grafts; Z98.1 Arthrodesis status; Z88.6 Allergy status to analgesic agent; Z88.2 Allergy status to sulfonamides; Z88.8 Allergy status to other drugs, medicaments and biological substances; Z79.2 Long term (current) use of antibiotics; Z79.01 Long term (current) use of anticoagulants; Z79.82 Long term (current) use of aspirin; I25.2 Old myocardial infarction; Z98.890 Other specified postprocedural states; Z91.81 History of falling
CPT/HCPCS: ECHO; 36415; 36600; 70450; 70551; 71045; 73030; 73060; 74018; 77001; 80048; 80053; 80074; 80202; 81001; 82550; 82553; 82607; 82728; 82746; 82803; 82962; 83036; 83540; 83550; 83605; 83735; 83874; 83880; 84100; 84133; 84300; 84484; 85025; 85027; 85652; 86140; 86704; 86706; 86708; 86803; 87081; 87340; 90935; 90937; 92526; 92610; 93005; 93306; 94640; 94660; 94664; 94760; 96374; 96375; 97110; 97110-GP-CQ; 97162; 97166; 97530; 97530-GP-CQ; 97535; 99285; C1750; C1751; C1752; C1769; C9113; J0360; J1100; J1170; J1642; J1644; J1756; J1956; J2185; J2270; J2405; J2765; J3370; J7030; J7050; J7070; J7120; P9047; U0002

== ENCOUNTER → 2022-01-26 | Outpatient (CLI) | payer OTHER ==
[~2022-01-26] MED LIST changes: +CLARITIN10 MG PO; +FAMOTIDINE40 MG PO; +NORVASC5 MG PO; +OMNICEF 300 MG300 MG PO; +PROAIR HFA8.5 GM INH; +ZYRTEC10 MG PO
[2022-01-26 12:39] LABS: HEMOGLOBIN 9.8 gm/dl (12.3-15.3); RED BLOOD COUNT 3.38 M/UL (4.00-5.10); WHITE BLOOD COUNT 17.9 K/UL (4.5-11.0)
== END ==
LOC: LAB 12:00
PROVIDERS: Internal Medicine
DX: N18.30 Chronic kidney disease, stage 3 unspecified (principal); D63.1 Anemia in chronic kidney disease; J18.9 Pneumonia, unspecified organism
CPT/HCPCS: 71046; 80053; 84100; 85025